=== PATIENT | male | born 1995 | race Caucasian/White ===

== ENCOUNTER 2018-03-16 22:54 | Emergency (ER) | payer OTHER ==
[2018-03-16 23:03] VITALS: BP 145/87; PULSE 77; TEMP 98.7; BMI 24.9
--- NOTE | 2018-03-17 00:37 | PDOC ---
Attending Attestation - Resident Resident Name: Yamilet MunozAinsley - ED Attending Attestation I have performed the following: I have examined & evaluated the patient, The case was reviewed & discussed with the resident, I agree w/resident's findings & plan, Exceptions are as noted - HPI HPI: 03/17/18 01:46 Getachew is a 22 yo M with a h/o epilepsy who presents to the ER with a complaint of persistent hiccups Pt seizures began at age 13, he is well controlled on his antiepileptics ( Trileptal and Keppra - last seizure was 1 year ago in the setting of medication non compliance). 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 ENT: Moist mucous membranes. NECK: Normal range of motion LUNGS: Breath sounds equal, clear to auscultation bilaterally. HEART:Regular rate and rhythm, normal S1 and S2 ABDOMEN: Soft, nontender EXTREMITIES: Normal range of motion NEUROLOGICAL: Cranial nerves II through XII grossly intact. Normal speech. No focal neurological deficits. SKIN: multiple tattoos - Medical Decision Making 03/17/18 01:56 Hiccups... Will attempt to give Protonix Can try Baclofen (per uptodate recommendation) or thorazine Re: pt seizure management It is possible that his trileptal may account for his hiccups Less likely given pt has been on this medication several years I have strongly encouraged this patient to follow up with a NEW NEUROLOGIST for further seizure management I have encouraged him to AVOID driving or operating heavy machinery
[2018-03-17] MEDS ORDERED: PANTOPRAZOLE 40 MG TABLET (FP) PO ONE (00:46)
--- NOTE | 2018-03-17 00:47 | PDOC ---
History of Present Illness - General Chief Complaint: Pain, Acute Stated Complaint: hiccups Time Seen by Provider: 03/16/18 23:49 - History of Present Illness Initial Comments: 22yo M with PMH of well-controlled seizures presenting with hiccups x 4 days. Patient reports that the hiccups started spontaneously after a night of drinking four or five beers. The hiccups are intermittent, but occurring frequently throughout the day. The patient will experience some relief while sleeping, only to wake up with recurrence of hiccups. He reports that after he takes his seizure medicine, he will usually feel out of it, however, has not felt this way recently and is concerned that his seizure medicine is not working and he may have another seizure. Patient is also concerned because after seizures he will experience a weird scent, and he has had this happen recently though denies seizures. He also reports some anxiety associated with concern for having a seizure, with tongue biting and saliva pooling behavior. Denies headache or focal neurologic defects. Denies history of GERD but describes an acid feeling in his throat. No fevers, chills, chest pain, shortness of breath, or abdominal pain. Past History - Past Medical History Allergies/Adverse Reactions: Allergies Allergy/AdvReac Type Severity Reaction Status Date / Time No Known Allergies Allergy Verified 03/16/18 23:03 Home Medications: Ambulatory Orders levETIRAcetam [Keppra] 1,500 mg PO BID 04/30/12 Oxcarbazepine [Trileptal] 600 mg PO BID 09/06/12 Pantoprazole Sodium [Protonix] 40 mg PO DAILY PRN #30 tablet. 03/17/18 Seizures: Yes - Immunization History Immunization Up to Date: Yes - Suicide/Smoking/Psychosocial Hx Smoking Status: No Smoking History: Never smoked Have you smoked in the past 12 months: No Number of Cigarettes Smoked Daily: 0 Information on smoking cessation initiated: No Hx Alcohol Use: No Drug/Substance Use Hx: No Review of Systems - Review of Systems Comments:: Constitutional: no fever, no chills HEENT: no throat pain, no dysphagia Cardiovascular: no chest pain, no palpitations Respiratory: no cough, no shortness of breath Gastrointestinal: no abdominal pain, no nausea, no vomiting Genitourinary: no dysuria, no frequency Musculoskeletal: no myalgia, no arthralgia Skin: no rash, no itching Neurologic: no headache, no dizziness *Physical Exam - Vital Signs Last Vital Signs Temp Pulse Resp BP Pulse Ox 98.7 F 77 14 145/87 100 03/16/18 23:01 03/16/18 23:01 03/16/18 23:01 03/16/18 23:01 03/16/18 23:01 - Physical Exam Comments: General: Awake, alert, and fully oriented, in no acute distress; patient observed hiccuping Head: no signs of trauma Eyes: EOMI, sclera anicteric ENT: Moist mucus membranes Neck: Normal ROM, supple Lungs: Lungs clear, Normal breath sounds Cardio: Regular rhythm, S1 and S2 present Abdomen: Soft, nontender. No guarding, no rebound, no masses Extremities: Normal range of motion, Distal pulses present SKIN: Warm, Dry, normal turgor Neurologic: Cranial nerves II through XII grossly intact. Normal speech Medical Decision Making - Medical Decision Making 22yo M with PMH of well-controlled seizures presenting with hiccups x 4 days. -DDX includes but not limited to medication GERD, adverse effect, alcohol, neoplasm, psychogenic -First-line treatment for prolonged headaches is a proton pump inhibitor. Protonix 40 po ordered. Will reassess 03/17/18 01:34 Patient reporting relief of symptoms. Hiccups likely related to GERD. Discharged. Patient amenable to plan. *DC/Admit/Observation/Transfer Diagnosis at time of Disposition: Hiccups - Discharge Dispostion Disposition: HOME - Prescriptions Prescriptions: Pantoprazole Sodium [Protonix] 40 mg PO DAILY PRN #30 tablet.dr HILL Reason: reflux - Referrals Referrals: Alexis Salazar [Non Staff, Medical] - Dylan Wolff MD [Staff Physician] - Fantasma Arellano MD [Staff Physician] - Yuriy Murillo MD [Staff Physician] - Breezy Flores DO [Staff Physician] - - Patient Instructions Printed Discharge Instructions: DI for Hiccups Additional Instructions: You came to the ED for hiccups. You were given medicine which improved your symptoms Prescription sent to your pharmacy. Follow up with your primary care provider, Dr. Salazar, in five to seven days to discuss this ED visit and to further evaluate your hiccups. Your care is not complete until you do so. Call and make an appointment. Follow-up with neurology. You have been referred to several different neurologists who you can see if you are unable to see your current one. Call and make an appointment to see a neurologist in the next five to seven days. RETURN if: you have severe headache, high fever, persistent vomiting, changes in vision, severe muscle pain, dark (tea-colored) urine, recurrent seizures, or any other new or concerning symptoms - Post Discharge Activity
[2018-03-17] MEDS ORDERED: PANTOPRAZOLE 40 MG TABLET (FP) ONE (01:41)
== END 2018-03-17 02:47 | disposition home or self-care (01) ==
LOC: JER 22:54
DX: R06.6 Hiccough (principal); Z86.69 Personal history of other diseases of the nervous system and sense organs; Z91.14 Patient's other noncompliance with medication regimen
CPT/HCPCS: 99281-25

== ENCOUNTER 2018-05-10 19:11 | Emergency (ER) | payer OTHER ==
[2018-05-10 19:59] VITALS: BP 115/93; PULSE 83; TEMP 98.9; BMI 24.1
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
== END 2018-05-10 20:59 | disposition home or self-care (01) ==
LOC: JERFT 19:11
DX: M25.512 Pain in left shoulder (principal); Y04.0XXA Assault by unarmed brawl or fight, initial encounter; Y93.89 Activity, other specified; Y92.89 Other specified places as the place of occurrence of the external cause; Y99.8 Other external cause status; G40.909 Epilepsy, unspecified, not intractable, without status epilepticus
CPT/HCPCS: 73030-TC-LT-FY; 99281-25

== ENCOUNTER 2019-05-30 07:22 | Emergency (ER) | payer OTHER ==
[2019-05-30 07:36] VITALS: BMI 27.4
--- NOTE | 2019-05-30 08:24 | PDOC ---
History of Present Illness - General Chief Complaint: Cold Symptoms Stated Complaint: FEVER,PAIN Time Seen by Provider: 05/30/19 07:47 History Source: Patient Exam Limitations: No Limitations - History of Present Illness Initial Comments: 05/30/19 10:17 CHIEF COMPLAINT: Fever HISTORY OF PRESENT ILLNESS: This is a 23-year-old male with a history of epilepsy (last seizure 3 years ago, on Keppra/Trileptal) who presents with 3 days of fevers, chills, and sweats. He reports that he has dry cough. He notes right flank pain and dysuria. He has some intermittent abdominal pain. He denies nausea/vomiting, diarrhea, and constipation. Patient has no travel or known sick contacts. 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 Of note, the patient states that he usually feels particular side effects of his antiepileptic medications, and does not feel them for the past few days. Vital signs on arrival are notable for pulse of 114 and oral temp of 100.0. REVIEW OF SYSTEMS: GENERAL/CONSTITUTIONAL: Fevers, chills, sweats x 2 days. No weakness. No weight change. HEAD, EYES, EARS, NOSE AND THROAT: No change in vision. No ear pain or discharge. No sore throat. CARDIOVASCULAR: No chest pain or palpitations. RESPIRATORY: Dry cough. No wheezing or shortness of breath. GASTROINTESTINAL: No nausea, vomiting, diarrhea or constipation. GENITOURINARY: Right flank pain, dysuria. No frequency or change in urination. MUSCULOSKELETAL: No joint or muscle swelling or pain. No neck or back pain. SKIN: No rash or easy bruising. NEUROLOGIC: No headache, vertigo, loss of consciousness, or loss of sensation. PSYCHIATRIC: No depression or anxiety. ENDOCRINE: No increased thirst. No abnormal weight change. HEMATOLOGIC/LYMPHATIC: No anemia, easy bleeding, or history of blood clots. ALLERGIC/IMMUNOLOGIC: No hives or skin allergy. No latex allergy. PHYSICAL EXAM: GENERAL: The patient is awake, alert, and fully oriented, in no acute distress. HEAD: Normal with no signs of trauma. ENT: Pupils equal, round and reactive to light, extraocular movements intact, sclera anicteric, conjunctiva clear. Neck supple. LUNGS: Clear to auscultation bilaterally. Normal excursion. No respiratory distress or use of accessory muscles. CV: RRR, S1/S2, no MRG. Cap refill < 2 sec. ABDOMEN: Soft, non-distended, non-tender. Right CVA tenderness. EXTREMITIES: Normal range of motion, no edema. NEUROLOGICAL: Normal speech, normal gait. CN II-XII grossly intact. PSYCH: Normal mood, normal affect. SKIN: Warm, dry, normal turgor, no rashes or lesions noted. Past History - Past Medical History Allergies/Adverse Reactions: Allergies Allergy/AdvReac Type Severity Reaction Status Date / Time No Known Allergies Allergy Verified 05/10/18 19:59 Home Medications: Ambulatory Orders levETIRAcetam [Keppra] 1,500 mg PO BID 04/30/12 Oxcarbazepine [Trileptal] 600 mg PO BID 09/06/12 Pantoprazole Sodium [Protonix] 40 mg PO DAILY PRN #30 tablet. 03/17/18 Ibuprofen 600 mg PO Q6H PRN #30 tablet 05/30/19 COPD: No Dialysis: No Hypercholesterolemia: No Seizures: Yes - Surgical History Lung Surgery: No - Immunization History Immunization Up to Date: Yes - Psycho Social/Smoking Cessation Hx Smoking Status: No Smoking History: Never smoked Have you smoked in the past 12 months: No Number of Cigarettes Smoked Daily: 0 Information on smoking cessation initiated: No Hx Alcohol Use: No Drug/Substance Use Hx: No *Physical Exam - Vital Signs Last Vital Signs Temp Pulse Resp BP Pulse Ox 100.0 F H 114 H 18 101/57 L 96 05/30/19 07:29 05/30/19 07:29 05/30/19 07:29 05/30/19 07:29 05/30/19 07:29 ED Treatment Course - LABORATORY CBC & Chemistry Diagram: 05/30/19 09:00 05/30/19 09:00 Medical Decision Making - Medical Decision Making 05/30/19 10:41 A/P: 23-year-old male with flulike symptoms, also complaining of dysuria and right flank pain. Patient complains that he does not feel his usual side effects of his antiepileptic drugs and feels that his levels may be low. -Influenza positive -Chest x-ray negative for infiltrate -UA negative -Keppra is send out test, will enter request to follow-up Discharge - Discharge Information Problems reviewed: Yes Clinical Impression/Diagnosis: Influenza Condition: Improved Disposition: HOME - Admission No - Additional Discharge Information Prescriptions: Ibuprofen 600 mg PO Q6H PRN #30 tablet PRN Reason: pain or fever - Follow up/Referral Referrals: Jaleel Cantu [Primary Care Provider] - 3 days - Patient Discharge Instructions Patient Printed Discharge Instructions: DI for Influenza -- Adult Additional Instructions: Your test was positive for influenza. Please stay home and try to avoid contact with others. Take high-dose ibuprofen as prescribed for fever and body aches. Drink plenty of fluids. Continue taking your antiepileptic medications. We will follow-up with you if your levels were low. Return here for difficulty breathing, vomiting/inability to keep down fluids, seizures, or any other concerning symptoms. - Post Discharge Activity Work/Back to School Note: Back to Work
[2019-05-30] MEDS ORDERED: IBUPROFEN 600 MG TABLET (FP) PO ONE ×2 (08:40→08:55)
[2019-05-30 10:22] LABS: PH,URINE 5.5 (5.0-8.0); URINE APPEARANCE CLEAR; URINE BILIRUBIN NEGATIVE (NEGATIVE); URINE COLOR YELLOW; URINE GLUCOSE (UA) NEGATIVE (NEGATIVE); URINE KETONE TRACE (NEGATIVE); URINE LEUK ESTERASE NEGATIVE (NEGATIVE); URINE NITRITE NEGATIVE (NEGATIVE); URINE PROTEIN NEGATIVE (NEGATIVE); URINE UROBILINOGEN 0.2 mg/dL (0.2-1.0)
[2019-05-30 10:23] LABS: BASO % 0.2 % (0-2.0); EOS % 0.2 % (0-4.5); HEMATOCRIT 44.9 % (35.4-49); HEMOGLOBIN 15.5 GM/dL (11.7-16.9); LYMPH % 10.4 % (8-40); MCH 31.1 pg (25.7-33.7); MCHC 34.6 g/dl (32.0-35.9); MEAN CELL VOLUME 89.8 fl (80-96); MEAN PLT VOLUME 7.2 fl (7.5-11.1); MONO % 10.2 % (3.8-10.2); PLATELET COUNT 202 K/MM3 (134-434); RDW 12.7 % (11.9-15.9); WHITE BLOOD COUNT 6.9 K/mm3 (4.0-10.0)
[2019-05-30 10:51] VITALS: BP 107/65; PULSE 95; TEMP 98.7
[2019-05-30 10:55] LABS: BILIRUBIN,TOTAL 0.5 mg/dL (0.2-1); CALCIUM 8.9 mg/dL (8.5-10.1); CREATININE 0.9 mg/dL (0.55-1.3); POTASSIUM 3.9 mmol/L (3.5-5.1); TOT PROT 7.8 g/dl (6.4-8.2)
== END 2019-05-30 11:00 | disposition home or self-care (01) ==
LOC: JER 07:22
DX: J11.1 Influenza due to unidentified influenza virus with other respiratory manifestations (principal)
CPT/HCPCS: 36415; 71046-TC-FY; 80053; 80177; 81003; 85025; 87086; 87804; 99282-25

== ENCOUNTER 2021-09-07 21:26 | Emergency (ER) | payer OTHER ==
[2021-09-07 21:42] VITALS: BP 129/75; PULSE 95; TEMP 97.9; BMI 26.6
[2021-09-07] MEDS ORDERED: FAMOTIDINE 20 MG/50 ML IVPB 20 MG/50 ML MG IVPB ONE (23:13)
[2021-09-07] MEDS ORDERED: METOCLOPRAMIDE HCL INJECTION 10 MG/2 ML VIAL IVPB ONE (23:13)
[2021-09-07] MEDS ORDERED: MAG HYDROX/AL HYDROX/SIMETH 30 ML UNIT-DOSE CUP PO ONE (23:13)
[2021-09-07] MEDS ORDERED: MAG HYDROX/AL HYDROX/SIMETH 30 ML UNIT-DOSE CUP ONE (23:34)
[2021-09-07] MEDS ORDERED: METOCLOPRAMIDE HCL INJECTION 10 MG/2 ML VIAL ONE (23:34)
[2021-09-07] MEDS ORDERED: FAMOTIDINE 10 MG/ML VIAL IVPB ONE (23:34)
[2021-09-07] MEDS ORDERED: LACTATED RINGERS SOLUTION 1000 ML INFUS.BAG IV ONE (23:50)
[2021-09-08 00:20] LABS: BASO % 0.3 % (0-2.0); HEMATOCRIT 44.7 % (35.4-49); HEMOGLOBIN 15.7 GM/dL (11.7-16.9); LYMPH % 22.5 % (8-40); MCH 30.8 pg (25.7-33.7); MCHC 35.1 g/dl (32.0-35.9); MEAN CELL VOLUME 87.8 fl (80-96); MEAN PLT VOLUME 6.6 fl (7.5-11.1); MONO % 9.5 % (3.8-10.2); NEUT % 66.7 % (42.8-82.8); PLATELET COUNT 239 10^3/uL (134-434); RBC 5.09 M/mm3 (4.00-5.60); RDW 12.9 % (11.9-15.9); WHITE BLOOD COUNT 6.7 K/mm3 (4.0-10.0)
[2021-09-08 00:26] LABS: CALCIUM 9.5 mg/dL (8.5-10.1)
[2021-09-08 00:27] LABS: ALBUMIN 4.1 g/dl (3.4-5.0); BLOOD UREA NITROGEN 12.3 mg/dL (7-18)
[2021-09-08 00:30] LABS: CREATININE 0.9 mg/dL (0.55-1.3)
[2021-09-08 00:31] LABS: BILIRUBIN,TOTAL 0.4 mg/dL (0.2-1); TOT PROT 7.8 g/dl (6.4-8.2)
== END 2021-09-08 03:22 | disposition home or self-care (01) ==
LOC: JER 21:26
PROC: 3E033GC Introduction of Other Therapeutic Substance into Peripheral Vein, Percutaneous Approach (ICD-10-PCS; principal; 2021-09-07)
DX: K21.9 Gastro-esophageal reflux disease without esophagitis (principal)
CPT/HCPCS: 36415; 80053; 83690; 85025; 99284-25

== ENCOUNTER 2022-04-29 11:47 | Emergency (ER) | payer OTHER ==
[2022-04-29 12:36] VITALS: BP 162/100; PULSE 103; RESP 18; TEMP 98.1; BMI 24.1
== END 2022-04-29 15:26 | disposition left against medical advice (07) ==
LOC: JERFT 11:47 → JER 11:47 → JERFT 15:26
DX: Z76.0 Encounter for issue of repeat prescription (principal)
CPT/HCPCS: 99281-25

== ENCOUNTER 2023-09-02 16:03 | Observation (INO) | payer OTHER ==
[2023-09-02 16:11] VITALS: BMI 26.6
[2023-09-02] MEDS ORDERED: ACETAMINOPHEN 325 MG TABLET (FP) ONE (17:22)
[2023-09-02] MEDS: ACETAMINOPHEN 325 MG TABLET (FP) PO ONE (17:34)
[2023-09-02 17:45] LABS: BASO % 0.1 % (0-2.0); EOS % 0.2 % (0-4.5); HEMATOCRIT 47.3 % (35.4-49); HEMOGLOBIN 16.1 GM/dL (11.7-16.9); MCH 30.1 pg (25.7-33.7); MEAN CELL VOLUME 88.5 fl (80-96); MEAN PLT VOLUME 6.4 fl (7.5-11.1); MONO % 5.8 % (3.8-10.2); NEUT % 87.9 % (42.8-82.8); PLATELET COUNT 274 10^3/uL (134-434); RBC 5.35 M/mm3 (4.00-5.60); RDW 13.3 % (11.9-15.9); WHITE BLOOD COUNT 13.2 K/mm3 (4.0-10.0)
[2023-09-02] MEDS: SODIUM CHLORIDE 0.9% 500 ML INFUS.BAG IV ONE (17:59)
[2023-09-02 18:22] LABS: POTASSIUM 3.7 mmol/L (3.5-5.1)
[2023-09-02 18:25] LABS: CALCIUM 9.1 mg/dL (8.5-10.1)
[2023-09-02 18:26] LABS: ALBUMIN 4.3 g/dl (3.4-5.0); BLOOD UREA NITROGEN 13.2 mg/dL (7-18)
[2023-09-02 18:28] LABS: CREATININE 1.1 mg/dL (0.55-1.3)
[2023-09-02 18:30] LABS: BILIRUBIN,TOTAL 0.4 mg/dL (0.2-1); TOT PROT 7.8 g/dl (6.4-8.2)
[2023-09-02] MEDS ORDERED: levETIRAcetam 500 MG/5 ML INJECTION VIAL IVPB ONE (20:34)
[2023-09-02] MEDS: levETIRAcetam 500 MG/5 ML INJECTION VIAL IVPB ONE (20:47)
[2023-09-02] MEDS: SODIUM CHLORIDE 1,000 ML IV STA (23:36)
[2023-09-03] MEDS ORDERED: OXcarbazepine 300 MG/5 ML 250 ML BULK BOTTLE PO ONE (01:25)
[2023-09-03 01:35] LABS: PH,URINE 5.5 (5.0-8.0); URINE APPEARANCE CLEAR; URINE BILIRUBIN NEGATIVE (NEGATIVE); URINE COLOR YELLOW; URINE GLUCOSE (UA) NEGATIVE (NEGATIVE); URINE KETONE NEGATIVE (NEGATIVE); URINE LEUK ESTERASE NEGATIVE (NEGATIVE); URINE NITRITE NEGATIVE (NEGATIVE); URINE PROTEIN NEGATIVE (NEGATIVE); URINE UROBILINOGEN 0.2 mg/dL (0.2-1.0)
[2023-09-03 01:43] LABS: METHADONE, UR NEGATIVE (NEGATIVE); OPIATES, URI NEGATIVE (NEGATIVE); PHENCYCLIDINE,URINE NEGATIVE (NEGATIVE); URINE BARBITURATES NEGATIVE (NEGATIVE); URINE BENZODIAZEPINES NEGATIVE (NEGATIVE)
[2023-09-03 01:44] LABS: COCAINE, UR NEGATIVE (NEGATIVE); URINE AMPHETAMINES NEGATIVE (NEGATIVE)
[2023-09-03] MEDS ORDERED: levETIRAcetam 500 MG TABLET (FP) PO ONE (01:46)
[2023-09-03] MEDS ORDERED: AZITHROMYCIN IVPB 500 MG/250 ML BAG IVPB ONE (01:47)
[2023-09-03] MEDS ORDERED: CEFTRIAXONE 1 GM/50 ML BAG ONE (01:47)
[2023-09-03] MEDS: CEFTRIAXONE 1,000 MG in DEXTROSE 5%-WATER - 50 ML IVPB ONE (01:57)
[2023-09-03] MEDS: levETIRAcetam 500 MG TABLET (FP) PO ONE (01:57)
[2023-09-03] MEDS: OXcarbazepine 300 MG TABLET (UD) PO ONE ×2 (02:04→10:27)
[2023-09-03] MEDS: AZITHROMYCIN IVPB 500 MG in DEXTROSE 5%-WATER - 250 ML IVPB ONE (02:29)
[2023-09-03 05:36] VITALS: RESP 18
[2023-09-03 08:07] LABS: BASO % 0.1 % (0-2.0); EOS % 0.3 % (0-4.5); HEMATOCRIT 41.2 % (35.4-49); HEMOGLOBIN 14.1 GM/dL (11.7-16.9); LYMPH % 19.5 % (8-40); MCH 30.5 pg (25.7-33.7); MCHC 34.2 g/dl (32.0-35.9); MEAN CELL VOLUME 89.2 fl (80-96); MEAN PLT VOLUME 6.6 fl (7.5-11.1); MONO % 9.6 % (3.8-10.2); NEUT % 70.5 % (42.8-82.8); PLATELET COUNT 239 10^3/uL (134-434); RBC 4.61 M/mm3 (4.00-5.60); WHITE BLOOD COUNT 8.4 K/mm3 (4.0-10.0)
[2023-09-03 08:31] LABS: POTASSIUM 3.5 mmol/L (3.5-5.1)
[2023-09-03 08:39] LABS: CALCIUM 8.4 mg/dL (8.5-10.1)
[2023-09-03 08:40] LABS: ALBUMIN 3.5 g/dl (3.4-5.0); MAGNESIUM 2.4 mg/dL (1.8-2.4)
[2023-09-03 08:41] LABS: BLOOD UREA NITROGEN 10.6 mg/dL (7-18)
[2023-09-03 08:43] LABS: CREATININE 0.8 mg/dL (0.55-1.3); PHOSPHOROUS 3.3 mg/dL (2.5-4.9)
[2023-09-03 08:44] LABS: TOT PROT 6.6 g/dl (6.4-8.2)
[2023-09-03 08:45] LABS: BILIRUBIN,TOTAL 0.6 mg/dL (0.2-1)
[2023-09-03] MEDS: levETIRAcetam 500 MG TABLET (FP) PO SCH (10:03)
[2023-09-03] MEDS: D5-1/2NS+10 MEQ KCL - 10 MEQ/1,000 ML INFUS.BAG IV SCH (10:08)
[2023-09-03] MEDS: ENOXAPARIN NA (PORCINE) 40 MG/0.4 ML DISP.SYRIN SQ SCH (10:09)
[2023-09-03] MEDS: levETIRAcetam 500 MG/5 ML INJECTION VIAL IVPB ONE (10:27)
[2023-09-03] MEDS: MAG HYDROX/AL HYDROX/SIMETH -MYLANTA- ORAL SUSPENSION PO ONE (11:00)
[2023-09-03] MEDS: FAMOTIDINE 20 MG TABLET PO SCH (11:55)
[2023-09-03] MEDS: OXcarbazepine 300 MG TABLET (UD) PO SCH (11:55)
[2023-09-03 13:40] VITALS: BP 118/72; PULSE 99; TEMP 98.4
== END 2023-09-03 15:37 | disposition home or self-care (01) ==
LOC: JER 16:03 → JERBED 09-03 02:00 → J4W 09-03 04:37
PROVIDERS: ADMIT Internal Medicine; ATTEND Internal Medicine
PROC: 3E03329 Introduction of Other Anti-infective into Peripheral Vein, Percutaneous Approach (ICD-10-PCS; principal; 2023-09-03)
PROC: 3E023GC Introduction of Other Therapeutic Substance into Muscle, Percutaneous Approach (ICD-10-PCS; 2023-09-03)
PROC: 3E033GC Introduction of Other Therapeutic Substance into Peripheral Vein, Percutaneous Approach (ICD-10-PCS; 2023-09-03)
PROC: 3E0337Z Introduction of Electrolytic and Water Balance Substance into Peripheral Vein, Percutaneous Approach (ICD-10-PCS; 2023-09-03)
DX: G40.909 Epilepsy, unspecified, not intractable, without status epilepticus (principal); R00.0 Tachycardia, unspecified; Z91.148 Patient's other noncompliance with medication regimen for other reason
CPT/HCPCS: 36415; 70450-TC; 71046-TC-FY; 71275-TC; 80053; 80177; 80183; 80307; 81003; 83605; 83735; 84100; 84484; 85025; 85379; 87086; 93005; 93010; 96361; 96365; 96367; 96372; 96375; 99285-25; G0378; Q9967